=== PATIENT | female | born 2000 | race African-American/Black ===

== ENCOUNTER → 2020-12-06 | Emergency (ER) | payer MEDICAID ==
[~2020-12-06] VITALS: Ht 175.3 cm; Wt 95.3 kg
[2020-12-06 22:17] VITALS: BP 141/84
== END | disposition left against medical advice (07) ==
LOC: ER 21:33
DX: M25.572 Pain in left ankle and joints of left foot (principal); Z53.21 Procedure and treatment not carried out due to patient leaving prior to being seen by health care provider; W19.XXXA Unspecified fall, initial encounter; Y93.89 Activity, other specified; Y92.89 Other specified places as the place of occurrence of the external cause; Y99.8 Other external cause status
CPT/HCPCS: 73610